=== PATIENT | male | born 1990 | race Caucasian/White ===

== ENCOUNTER 2021-01-13 14:30 | Emergency (ER) | payer OTHER, SELFPAY ==
--- NOTE | 2021-01-13 14:52 | ED.URI ---
HPI - URI/Sore Throat General Chief Complaint: Upper Respiratory Infection Stated Complaint: Congestion,Cough Time Seen by Provider: 01/13/21 14:52 Source: patient, RN notes reviewed and old records reviewed Mode of arrival: ambulatory Limitations: no limitations History of Present Illness HPI Narrative: 30 year old male who presents to [facility] care with complaints of sinus drainage, cough, headache for one week duration. Patient states that his cough is worse at night especially when he he lying down and this causes his throat to be sore also. Patient states that he has been blowing his nose and coughing up yellowish mucous. Patient denies any known fevers chills or sweats.Patient admits to tobacco abuse of 1 pack daily, denies any acute shortness of breath or any known wheezing. Lungs decreased on auscultation, no tachypnea or accessory muscle use noted, SAO2 97% on room air. Related Data Allergies Allergy/AdvReac Type Severity Reaction Status Date / Time No Known Allergies Allergy Verified 01/13/21 14:41 Review of Systems Review of Systems: Narrative: CONSTITUTIONAL: Denies fever, chills, or sweats. EYES: Denies visual changes, redness, or discharge. ENT: Positive for rhinorrhea, congestion, sore throat, no otalgia. CARDIOVASCULAR: Denies chest pain, palpitations, or edema. RESPIRATORY:Positive cough, denies dyspnea. GASTROINTESTINAL: Denies abdominal pain, nausea, vomiting, or diarrhea. GENITOURINARY: Denies dysuria or hematuria. SKIN: Denies rash or itching. MUSCULOSKELETAL: Denies back pain, joint pain, or myalgia. NEUROLOGIC: Positive headache, denies numbness, or weakness. PSYCHIATRIC: Denies anxiety or depression. All systems reviewed & are unremarkable except as noted in HPI and below PMFSH Past Medical History Medical History (Updated 01/13/21 @ 17:03 by Sendy Alejo NP) ADHD Tobacco abuse Surgical History Surgical History (Updated 01/13/21 @ 17:02 by Sendy Alejo NP) No history of previous surgery Family History Family History (Updated 01/13/21 @ 17:02 by Sendy Alejo NP) Father Hypertension Grandparent Diabetes mellitus Social History Social History (Updated 01/13/21 @ 14:56 by Sendy Alejo NP) Smoking status: Current every day smoker Tobacco type: cigarettes Alcohol intake: current Substance use: never Other substance usage details: denies Gender identity (if verbalized by the patient): Male Comments At time of signature, agree with nursing past medical, surgical, social and family history. There is no relevant family history pertinent to the presenting complaint Exam Narrative: Exam Narrative: GENERAL: Well-appearing, well-nourished, and in no acute distress. HEAD: Normocephalic, atraumatic. EYES: PERRLA and EOMI. ENT: Nares red and membranes swollen, rhinorrhea no epistaxis. Mucous membranes moist.TM's normal with good light reflex. throat red with post nasal drainage noted to back of throat with no wxudates or lesions noted, some tonsil enlargement but no redness. NECK: Supple.no lymphadenopathy CHEST: Clear to auscultation. No respiratory distress.SAO2 97% on room air HEART: Regular rate and rhythm. No murmur heard. Normal peripheral pulses. ABDOMEN: Soft, nontender, nondistended, normal active bowel sounds. EXTREMITIES: Normal range of motion. No edema. SKIN: Warm, dry, no rash. NEURO: No focal deficits. Alert and oriented x3. Course Vital Signs Vital signs: Vital Signs Temperature 36.4 C L 01/13/21 14:55 Pulse Rate 96 01/13/21 14:55 Respiratory Rate 16 01/13/21 14:55 Blood Pressure 133/88 01/13/21 14:55 Pulse Oximetry 97 01/13/21 14:55 Temperature 36.4 C L 01/13/21 14:55 Pulse Rate 96 01/13/21 14:55 Respiratory Rate 16 01/13/21 14:55 Blood Pressure 133/88 01/13/21 14:55 Pulse Oximetry 97 01/13/21 14:55 MDM - URI/Sore Throat Differential Diagnosis Differential diagnosis: Likely upper respiratory inf
[2021-01-13 14:55] VITALS: BP 133/88; PULSE 96; RESP 16; TEMP 36.4; O2SAT 97
--- NOTE | 2021-01-13 15:17 | ED.URI ---
HPI - URI/Sore Throat General Chief Complaint: Upper Respiratory Infection Stated Complaint: Congestion,Cough Time Seen by Provider: 01/13/21 14:52 Source: patient, RN notes reviewed and old records reviewed Mode of arrival: ambulatory Limitations: no limitations History of Present Illness HPI Narrative: 30 year old male who presents to [facility] care with complaints of one week duration of cough, sinus drainage, headache pain. Patient states that his cough is worse at night when he is laying down and he has experienced emesis due to cough. Patient denies any known fevers, chills or sweats, states that cough does make his throat sore, denies any ear pain. Patient states that his sinus drainage and his sputum is yellow in color with no blood noted. He has even and nonlabored respirations with no tachypnea or accessory muscle use, SAO2 97% on room air. MD elicited complaint: cough, rhinorrhea, nasal congestion, sinus pain and other (headache) Pertinent past history: other (tobacco abuse) Onset (ago): week(s) (1) Consistency: progressively worsening Severity: moderate Pain scale (0-10): 5 Description of mucous: yellow Able to tolerate fluids by mouth: Yes Exacerbating factors: supine positioning Relieving factors: nothing Associated symptoms: headache, rhinorrhea, nasal congestion, sore throat, cough, vomiting and other (headache) Treatments prior to arrival: ibuprofen Related Data Allergies Allergy/AdvReac Type Severity Reaction Status Date / Time No Known Allergies Allergy Verified 01/13/21 14:41 Review of Systems Review of Systems: Narrative: CONSTITUTIONAL: Denies known fever, chills, or sweats. EYES: Denies visual changes, redness, or discharge. ENT: Positive rhinorrhea, congestion, sore throat with coughing, no otalgia. CARDIOVASCULAR: Denies chest pain, palpitations, or edema. RESPIRATORY: Positive for productive and nonproductive cough denies dyspnea. GASTROINTESTINAL: Denies abdominal pain, nausea,reported vomiting due to cough, no diarrhea. GENITOURINARY: Denies dysuria or hematuria. SKIN: Denies rash or itching. MUSCULOSKELETAL: Denies back pain, joint pain, or myalgia. NEUROLOGIC:Positive headache, no numbness, or weakness. PSYCHIATRIC: Denies anxiety or depression. [facility] Past Medical History Medical History (Updated 01/15/21 @ 14:28 by Sendy Alejo NP) ADHD GERD (gastroesophageal reflux disease) Tobacco abuse Surgical History Surgical History (Updated 01/13/21 @ 17:02 by Sendy Alejo NP) No history of previous surgery Family History Family History (Updated 01/13/21 @ 17:02 by Sendy Alejo NP) Father Hypertension Grandparent Diabetes mellitus Social History Social History (Updated 01/15/21 @ 14:29 by Sendy Alejo NP) Smoking status: Current every day smoker Tobacco type: cigarettes Alcohol intake: current Substance use: never Other substance usage details: denies Living arrangements: with family Gender identity (if verbalized by the patient): Male Exam Narrative: Exam Narrative: GENERAL: Well-appearing, well-nourished,unkept appearance and in no acute distress. HEAD: Normocephalic, atraumatic. EYES: PERRLA and EOMI. ENT: Nares red with swollen turbinates with yellow rhinorrhea no epistaxis. Mucous membranes moist.TM's normal with good light reflex, throat red with no exudate or lesions, mild tonsil enlargement, post nasal drainage noted, voice hoarseness. NECK: Supple.no lymphadenopathy CHEST: Clear coarse to auscultation. No respiratory distress.harsh cough noted with SAO2 97% on room air HEART: Regular rate and rhythm. No murmur heard. Normal peripheral pulses. ABDOMEN: Soft, nontender, nondistended, normal active bowel sounds. EXTREMITIES: Normal range of motion. No edema. SKIN: Warm, dry, no rash. NEURO: No focal deficits. Alert and oriented x3. Course Vital Signs Vital signs: Vital Signs Temperature 36.4 C L 01/13/21 14:55 Pulse Rate 96
== END 2021-01-13 15:38 | disposition home or self-care (01) ==
PROVIDERS: Emergency Provider Registered Nurse
DX: R05 Cough (principal); J06.9 Acute upper respiratory infection, unspecified; Z20.822 Contact with and (suspected) exposure to COVID-19
CPT/HCPCS: 87426; 99213; C9803; G0463

== ENCOUNTER 2022-04-09 15:18 | Emergency (ER) | payer OTHER, SELFPAY ==
--- NOTE | ~2022-04-09 | XR_ITS ---
EXAMINATION: XR chest 2V 04/09/2022 16:14 INDICATION: Runny nose with congestion PROCEDURE: 2 view chest COMPARISON: 05/14/2014 FINDINGS: The lungs are clear. The cardiomediastinal silhouette is within normal limits. There are no pleural effusions. There is no pneumothorax suspected. IMPRESSION: 1: NO ACUTE CARDIOPULMONARY DISEASE. Reviewed, dictated and finalized at location A.
[2022-04-09 15:29] VITALS: BP 118/77; PULSE 95; RESP 16; TEMP 36.7; O2SAT 99
--- NOTE | 2022-04-09 16:02 | ED.URI ---
HPI - URI/Sore Throat General Chief Complaint: Upper Respiratory Infection Stated Complaint: cold sx Time Seen by Provider: 04/09/22 16:02 Source: patient and RN notes reviewed Mode of arrival: ambulatory Limitations: no limitations History of Present Illness HPI Narrative: 31-year-old male presents to the [facility] with complaints of cold-like symptoms, fatigue since Friday. Related Data Allergies Allergy/AdvReac Type Severity Reaction Status Date / Time No Known Allergies Allergy Verified 04/09/22 15:32 Review of Systems Review of Systems: All systems reviewed & are unremarkable except as noted in HPI and below Constitutional: Constitutional: Reports no additional constitutional complaints, Denies chills and Denies fever(s) Eyes: Eyes: Reports no additional eye complaints ENT: Reports as per HPI and Reports nasal congestion Cardiovascular: Cardiovascular: Reports no additional cardiovascular complaints Respiratory: Respiratory: Reports as per HPI Gastrointestinal: Gastrointestinal: Reports no additional gastrointestinal complaints Musculoskeletal: Musculoskeletal: Reports no additional musculoskeletal complaints Integumentary/Breasts: Skin/Breast: Reports system reviewed and no additional complaints, except as docu Neurologic: Reports system reviewed and no additional complaints, except as documented Psychiatric: Psychiatric: Reports no additional psychiatric complaints Allergic/Immunologic: Allergic/Immunologic: Reports no additional allergic/immunologic complaints PMFSH Past Medical History Medical History ADHD GERD (gastroesophageal reflux disease) Tobacco abuse Surgical History Surgical History No history of previous surgery Family History Family History Father Hypertension Grandparent Diabetes mellitus Social History Social History Smoking status: Current every day smoker Tobacco type: cigarettes Alcohol intake: current Substance use: never Other substance usage details: denies Gender identity (if verbalized by the patient): Male Comments At the time of my signature, I reviewed and agree with the nursing past medical, surgical, social, and family history. There is no relevant family history pertinent to the patient complaint. Exam Const: General: no acute distress, alert and ill appearing acutely (mild) Nutritional Appearance: well nourished Orientation/consciousness: patient oriented x3 Limitations: no limitations HENMT: Head: normal to inspection Ears: external ears normal General nose exam: Normal external nose present Mouth: Yes Normal oral and palatal mucosa present Throat: posterior oropharynx normal Eyes: General: appearance normal, both eyes and all related structures Pupils: Equal, round and reactive pupils present Neck: Neck: normal visual inspection, no lymphadenopathy and no meningeal signs Chest: Chest palpation & inspection: normal inspection of the chest Resp: Effort & Inspection: normal respiratory effort and no use of accessory muscles Auscultation: clear to auscultation bilaterally, no crackles, no rales, no rhonchi and no wheezes Cardio: Rate: regular rate Rhythm: regular rhythm Back/Spine/Pelvis: Cervical Spine: normal cervical lordosis Thoracic/Lumbar Spine: thoracic and lumbar spine normal to inspection Skin: General skin exam: normal color Rashes: no rashes Wounds: no wounds Neuro: General: patient oriented x3, moves all extremities, no meningeal signs and no focal motor deficits Cranial nerves: Yes Equal, round and reactive pupils present Speech: normal speech Gait exam (Neuro): Normal gait present Extrem: General: normal to inspection, full ROM and capillary refill normal Psych: Appearance: grossly normal and we
[2022-04-09 21:04] LABS: SARS-CoV-2 RNA PCR Positive
== END 2022-04-09 16:35 | disposition home or self-care (01) ==
PROVIDERS: Emergency Provider Nurse Practitioner
DX: U07.1 COVID-19 (principal); F90.9 Attention-deficit hyperactivity disorder, unspecified type; K21.9 Gastro-esophageal reflux disease without esophagitis; F17.210 Nicotine dependence, cigarettes, uncomplicated
CPT/HCPCS: 71046; 87426; 87804; 99213; C9803; G0463; U0003; U0005

== ENCOUNTER 2022-12-19 08:24 | Emergency (ER) | payer OTHER, SELFPAY ==
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
[2022-12-19 08:34] VITALS: BP 152/89; PULSE 88; RESP 12; TEMP 36.7; O2SAT 100
--- NOTE | 2022-12-19 08:53 | PC.NURSE ---
eye exam completed by MADELEINE Waller.
== END 2022-12-19 08:55 | disposition home or self-care (01) ==
PROVIDERS: Emergency Provider Nurse Practitioner
DX: S05.01XA Injury of conjunctiva and corneal abrasion without foreign body, right eye, initial encounter (principal); T14.90XA Injury, unspecified, initial encounter; K21.9 Gastro-esophageal reflux disease without esophagitis; F17.210 Nicotine dependence, cigarettes, uncomplicated
CPT/HCPCS: 99213; A9270; G0463

== ENCOUNTER 2023-12-01 09:46 | Emergency (ER) | payer OTHER, SELFPAY ==
--- NOTE | 2023-12-01 09:54 | ED.URI ---
HPI - URI/Sore Throat General Chief Complaint: Upper Respiratory Infection Stated Complaint: cough,throwing up,sweats Time Seen by Provider: 12/01/23 09:54 Source: patient Mode of arrival: ambulatory Limitations: no limitations History of Present Illness HPI Narrative: Aki is a 32-year-old male patient presenting to the clinic today with complaints of cough, throwing up, and sweats times 2-3 days. He reports no known fever or chills. Related Data Allergies Allergy/AdvReac Type Severity Reaction Status Date / Time No Known Allergies Allergy Verified 12/19/22 08:32 Review of Systems Review of Systems: Pertinent positives per HPI. Patient denies any fever, chills, rash, headache, visual changes, dizziness, cough, runny nose, sore throat, shortness of breath, chest pain, palpitations, nausea, vomiting, diarrhea, constipation, abdominal pain, or any urinary issues. PMFSH Past Medical History Medical History ADHD GERD (gastroesophageal reflux disease) Tobacco abuse Surgical History Surgical History No history of previous surgery Family History Family History Father Hypertension Grandparent Diabetes mellitus Social History Social History Smoking status: Current every day smoker Tobacco type: cigarettes Alcohol intake: current Substance use: never Other substance usage details: denies Living arrangements: with family Gender identity (if verbalized by the patient): Male Comments At the time of my signature, I reviewed and agree with the nursing past medical, surgical, social, and family history. There is no relevant family history pertinent to the patient complaint. Exam Narrative: General: Well-developed, well nourished, in no apparent distress Head: Normocephalic, atraumatic Eyes: Pupils equally round and reactive to light bilaterally, EOM intact, sclera and conjunctive clear, no discharge, lids normal Ears: TMs intact and congested, ear canals clear, no drainage, grossly hearing normal. Nose: Nares patent, clear nasal discharge, no inflammation, no sinus tenderness. Mouth: Oropharynx without lesions or masses, good dentition, MMM. Neck: Supple, trachea midline, no enlargement of anterior or posterior cervical nodes, no thyroid masses or goiter palpable. Cardio: Regular rate and rhythm, s1 and s2 normal, no murmur appreciated. Resp: Clear to auscultation bilaterally anteriorly and posteriorly, no rhonchi, rales, wheezing or rubs Course Course Emergency Course: Portions of this record may have been created with voice recognition software. Level of Care: Express Care Visit Vital Signs Vital signs: Vital Signs Temperature 37.0 C 12/01/23 10:07 Pulse Rate 93 12/01/23 10:07 Respiratory Rate 18 12/01/23 10:07 Blood Pressure 117/80 12/01/23 10:07 Pulse Oximetry 97 12/01/23 10:07 Oxygen Delivery Room Air 12/01/23 10:07 Temperature 37.0 C 12/01/23 10:07 Pulse Rate 93 12/01/23 10:07 Respiratory Rate 18 12/01/23 10:07 Blood Pressure 117/80 12/01/23 10:07 Pulse Oximetry 97 12/01/23 10:07 Oxygen Delivery Room Air 12/01/23 10:07 Vital signs reviewed MDM - URI/Sore Throat MDM Narrative Medical decision making narrative: At the time of visit patient is resting comfortably on the exam table. Patient appears to be nontoxic. Labs: Strep and influenza testing was negative. Plan: I suspect patient has URI/viral syndrome/acute nausea vomiting. Prescription for Zofran was sent to the pharmacy. Supportive measures were discussed with the patient and they voiced understanding discharge instructions and agrees to treatment plan. Return precautions reviewed Differential Diagnosis Differential diagnosis: L
[2023-12-01 10:07] VITALS: BP 117/80; PULSE 93; RESP 18; TEMP 37; O2SAT 97
== END 2023-12-01 10:41 | disposition home or self-care (01) ==
PROVIDERS: Emergency Provider Nurse Practitioner Family
DX: B34.9 Viral infection, unspecified (principal); R11.2 Nausea with vomiting, unspecified; J06.9 Acute upper respiratory infection, unspecified; F17.210 Nicotine dependence, cigarettes, uncomplicated; K21.9 Gastro-esophageal reflux disease without esophagitis
CPT/HCPCS: 87081; 87804; 87880; 99213; G0463